=== PATIENT | female | born 1950 | race Caucasian/White ===

== ENCOUNTER 2024-09-29 16:00 | Outpatient (REF) | payer MEDICARE, MEDICAID, SELFPAY ==
[2024-09-29 19:26] LABS: Folate 7.2 ng/mL (> or = 4.0); Vitamin B12 397 pg/mL (200-900)
[2024-09-30 17:49] LABS: Lyme Abs Screen <0.90 index
[2024-10-02 18:58] LABS: Treponema pallidum Ab FTA ABS Nonreactive (Nonreactive)
== END 2024-09-29 16:01 | disposition home or self-care (01) ==
LOC: HO.LAB 16:00
PROVIDERS: PCP Internal Medicine; Visit Provider Psychiatry & Neurology Neurology
DX: G95.9 Disease of spinal cord, unspecified (principal)
CPT/HCPCS: 36415; 82607; 82746; 86617; 86618; 86780